=== PATIENT | female | born 1945 | race Caucasian/White ===

== ENCOUNTER → 2017-12-12 | Outpatient (CLI) | payer OTHER ==
[~2017-12-12] MED LIST: ALBU1AER9 INH; ATOR-24 PO; BUPR75TA20 PO; CHOL100010 PO; CLB/200 PO; FLUT0.0529 NAE; FLVHFA44 INH; LOSA50TA6 PO; METO50TA8 PO; PRT/20 PO; RANI150T85 PO
--- NOTE | 2017-12-12 16:37 | DIAGNOSTIC IMAGING REPORT ---
CT SCAN OF THE ORBITS WITHOUT IV CONTRAST CLINICAL HISTORY: Left eye contusion. COMPARISON STUDY: No priors. TECHNIQUE: High-resolution CT scan of the orbits is performed. Images are reviewed in the axial, sagittal, and coronal planes. IV contrast was not administered for this examination as per the referring clinician. A dose lowering technique was utilized adhering to the principles of ALARA. CT DOSE: 324.82 mGycm FINDINGS: The skeletal structures are osteopenic. The bony orbits are intact. Orbital contents are normal in appearance noting bilateral ocular lens implants. There is no evidence of intra- or extraconal mass. The extraocular musculature is normal and symmetric. There is left periorbital and premalar soft tissue contusion. There is no evidence of fracture. The zygomatic arches, pterygoid plates, and nasal bones are preserved. There are no layering blood products within the paranasal sinuses. Mild mucosal thickening is seen within the maxillary antra. Trace fluid is noted on the right. The remaining paranasal sinuses are clear. There is a small left mastoid effusion. The right mastoid air cells are well pneumatized. The imaged calvarium appears intact. The brain parenchyma is normal as visualized noting mild age-related involutional change. IMPRESSION: 1. The bony orbits are intact and orbital contents are normal in appearance. 2. There is left periorbital and premalar soft tissue contusion. 3. No fracture is identified. Dictated: 12/12/2017 4:17 PM Transcribed: 12/12/2017 4:37 PM [email or web address] Electronically signed by: Jus De La O M.D. 12/12/2017 4:42 PM Dictated Date/Time: 12/12/2017 4:17 PM
== END | disposition home or self-care (01) ==
LOC: C.CTS 15:16
PROVIDERS: ATTEND Optometrist
DX: S00.12XA Contusion of left eyelid and periocular area, initial encounter (principal); X58.XXXA Exposure to other specified factors, initial encounter

== ENCOUNTER 2021-07-07 10:47 | Observation (INO) ==
[2021-07-07] MEDS ORDERED: SODIUM CHLORIDE 0.9% 1000ML 1,000 ML IV STA (11:12)
[2021-07-07] MEDS ORDERED: ONDANSETRON INJ 2 MG/ML 2 ML VIAL IV STA (11:12)
[2021-07-07] MEDS ORDERED: MoRPHine SULFATE 4 MG/ML 1 ML CARP\\VIAL IV PRN (11:12)
--- NOTE | 2021-07-07 11:20 | Emergency Department Note ---
Impression & Plan Hydronephrosis with renal and ureteral calculous obstruction, Flank Pain, Left ureteral calculus ED Provider Note NAME: ERASTO HOLLINS AGE: 76 SEX: F : 1945 ARRIVES VIA: Walk-In INFORMANT: Patient, ED PROVIDER(S): Stan Chávez DO CHIEF COMPLAINT: Abdominal pain HPI: The patient is a 76-year-old female who presented to the emergency department for an evaluation of left lower quadrant abdominal pain. The patient states she had a gradually worsening onset of left-sided abdominal pain this morning. The pain does appear to go into her flank but mostly is in her left lower quadrant. She states is moderate to severe. She is noticed nausea as well as vomiting. She also noticed dark urine. She has no history of kidney stones in the past. She states the pain worsens with ambulation. She has been hunched over because of the pain. She denies having any fever. She denies having any recent trauma. The patient was seen by her primary care physician recently for bronchitis and was on an antibiotic. She had some diarrhea after the antibiotic but was told it was just from the antibiotic. She has not noticed significant diarrhea over the last 24 hours. She denies having any chest pain or difficulty breathing. She has no lower extremity swelling or rash. ROS: See above HPI for pertinent positives & negatives. A total of 10 systems reviewed and were otherwise negative. PAST MEDICAL HISTORY: See Below PAST SURGICAL HISTORY: See Below FAMILY HISTORY: See Below SOCIAL HISTORY: See Below HOME MEDICATIONS: See Below ALLERGIES: See Below VITALS: See Below PHYSICAL EXAMINATION: GENERAL: The patient is awake and alert. The patient is very anxious appearing and appears to be in significant pain. EYES: The conjunctivae are clear. The pupils are round and reactive. EARS, NOSE, MOUTH AND THROAT: The nose is without any evidence of any deformity. NECK: The neck is nontender and supple. RESPIRATORY: Normal respiratory effort is noted there is no evidence of wheezing rhonchi or rales CARDIOVASCULAR: Regular rate and rhythm noted there no murmurs rubs or gallops normal S1 normal S2. GASTROINTESTINAL: Abdomen is soft and mildly distended. There is significant left lower quadrant tenderness to palpation. There is no guarding. MUSCULOSKELETAL/EXTREMITIES: There is no evidence of gross deformity full range of motion is noted in the hips and shoulders. SKIN: There is no obvious evidence of any rash. There are no petechiae, pallor or cyanosis noted. NEUROLOGIC: Patient is awake alert and oriented x3. MEDICAL DECISION MAKING: The patient is a 76-year-old female who presented to the emergency department for an evaluation of flank pain. The patient had very severe acute left-sided flank pain. She was treated with IV pain medication and IV antiemetics. She was also started on Flomax and given Toradol in the emergency department. She was reevaluated multiple times. She did have some relief of her flank pain but her pain started to return. I discussed patient's laboratory and radiographic studies with her. Given the size and location of the kidney stone it is possible the patient may pass a stone without surgical intervention. Given her pain level as well as the size of the stone I will discuss this case with the on-call [facility] hospitalist group. Triage Nursing notes reviewed. Prior medical records reviewed Vital Signs: reviewed and remarkable for elevated blood pressure. Differential diagnosis: Renal colic, UTI, appendicitis, diverticulitis, mesenteric ischemia, aortic pathology, infections, inflammatory bowel disease, PUD, biliary pathology, as well as other pathologies. ER treatment provided: See below Diagnostics interpreted by me: ECG: none Cardiac Monitoring: An order was placed for continuous cardiac monitoring. The monitor shows a rate of 60 bpm with sinus rhythm. Laboratory studies: As stated above and show below. Imaging studies: See below Consultation(s): I discussed this case with Toma who is on-call for the [facility] hospitalist group. They will evaluate the patient in the emergency department for further management and disposition. Past Med/Surg History Medical History COPD (chronic obstructive pulmonary disease) Hypertension Social History Smoking Status: Never smoker Preferred Language: Greek Feels Safe at Home: Yes Allergies Allergies Allergy/AdvReac Type Severity Reaction Status Date / Time No Known Allergies Allergy Unknown Verified 03/10/15 08:55 Home Meds Home Medications Medication Instructions Recorded Confirmed albuterol sulfate 90 mcg/actuation 2 puff INHALATION DAILY PRN 07/07/21 07/07/21 aerosol inhaler atorvastatin 10 mg tablet 10 mg PO QAM 07/07/21 07/07/21 cholecalciferol (vitamin D3) 25 0 mcg PO QAM 07/07/21 07/07/21 mcg (1,000 unit) capsule (Vitamin D3) escitalopram oxalate 10 mg tablet 10 mg PO HS 07/07/21 07/07/21 fluticasone propionate 110 2 puff INHALATION BID 07/07/21 07/07/21 mcg/actuation HFA aerosol inhaler (Flovent HFA) losartan 100 mg tablet 100 mg PO QAM 07/07/21 07/07/21 metoprolol succinate 25 mg 25 mg PO QAM 07/07/21 07/07/21 tablet,extended release 24 hr montelukast 10 mg tablet 10 mg PO HS 07/07/21 07/07/21 multivitamin 1 tab PO QAM 07/07/21 07/07/21 pantoprazole 20 mg tablet,delayed 20 mg PO DAILYBB 07/07/21 07/07/21 release Results & Data (ED) Vital Signs Vital Signs - 24 hr 07/07/21 10:55 07/07/21 11:27 07/07/21 13:00 Temperature 36.4 C L Temperature Source Oral Pulse Rate 83 Pulse Rate [Apical] 60 60 Pulse Rhythm [Apical] Regular Irregular Pulse Strength [Apical] Normal Normal Respiratory Rate 16 20 16 Respiratory Effort / Characteristics Non-Labored Spontaneous Non-Labored Spontaneous Respiratory Depth Normal Normal Respiratory Pattern Regular Blood Pressure 177/117 H Blood Pressure [Right Arm] 186/79 H 160/75 H Blood Pressure Mean 137 Blood Pressure Mean [Right Arm] 114 103 Blood Pressure Position [Right Arm] Lying Pulse Oximetry 98 100 99 Oxygen Delivery Method Room Air Room Air Nasal Cannula Oxygen Flow Rate 2 Sepsis Recent Fever Within 48 Hours No Sepsis New/Unexplained Change in Mental Status No Sepsis Action Taken by Nursing No Action Required Home Medications Current Medication List: was personally reviewed by me Laboratory Data Attestation: I reviewed the patient's lab results. Result diagrams: 07/07/21 11:15 07/07/21 11:15 Lab Results 07/07/21 07/07/21 07/07/21 Range/Units 11:15 11:15 11:45 WBC 10.53 (4.8-10.8) K/uL RBC 4.92 (4.2-5.4) M/uL Hgb 14.1 (12.0-16.0) g/dL Hct 42.1 (37-47) % MCV 85.6 (80-100) fL MCH 28.7 (25-34) pg MCHC 33.5 (32-36) g/dL RDW Std Deviation 40.5 (36.4-46.3) fL RDW Coeff of Regine 12.8 (11.5-14.5) % Plt Count 203 (130-400) K/uL MPV 11.4 H (7.4-10.4) fL Immature Gran % (Auto) 0.1 % Neut % (Auto) 85.1 % Lymph % (Auto) 10.4 % [place] % (Auto) 3.5 % Eos % (Auto) 0.7 % Baso % (Auto) 0.2 % Neut # (Auto) 8.96 H (1.4-6.5) K/uL Lymph # (Auto) 1.10 L (1.2-3.4) K/uL [place] # (Auto) 0.37 (0.11-0.59) K/uL Eos # (Auto) 0.07 (0-0.5) K/uL Baso # (Auto) 0.02 (0-0.2) K/uL Immature Gran # (Auto) 0.01 (0.00-0.02) K/uL Sodium 143 (136-145) mmol/L Potassium 4.1 (3.5-5.1) mmol/L Chloride 112 H (98-107) mmol/L Carbon Dioxide 25 (21-32) mmol/L Anion Gap 7.0 (3-11) BUN 19 H (7-18) mg/dl Creatinine 0.92 (0.6-1.2) mg/dl Est Cr Clr Drug Dosing 49.8 ml/min Est GFR ( Amer) 70.6 ml/min Est GFR (Non-Af Amer) 60.9 ml/min BUN/Creatinine Ratio 20.4 H (10-20) Glucose 149 H (70-99) mg/dl Calcium 9.7 (8.5-10.1) mg/dl Total Bilirubin 0.6 (0.2-1) mg/dl AST 11 L (15-37) U/L ALT 26 (12-78) U/L Alkaline Phosphatase 68 (45-117) U/L Total Protein 7.4 (6.4-8.2) gm/dl Albumin 3.8 (3.4-5.0) gm/dl Globulin 3.6 (2.5-4.0) gm/dl Albumin/Globulin Ratio 1.0 (0.9-2) Lipase 172 (73-393) U/L Urine Color Yellow Urine Appearance Clear (Clear) Urine pH 5.5 (4.5-7.5) Ur Specific [place] 1.025 (1.000-1.030) Urine Protein Negative (Negative) Urine Glucose (UA) Negative (Negative) Urine Ketones Negative (Negative) Urine Blood 2+ H (Negative) Urine Nitrite Negative (Negative) Urine Bilirubin Negative (Negative) Urine Urobilinogen Negative (Negative) Ur Leukocyte Esterase Trace H (Negative) Urine RBC 10-30 H (0-4) /hpf Urine WBC 0-5 (0-5) /hpf Ur Epithelial Cells 10-20 H (0-5) /lpf Calcium Oxalate Crystal Present A (None Prsent) Urine Bacteria 1+ H (Negative) Administered Medications Morphine Sulfate (Morphine Sulfate 4 Mg/Ml 1 Ml Carp\Vial) 4 mg IV Q15M PRN PRN Reason: Pain Stop: 07/21/21 11:11 Last Admin: 07/07/21 11:32 Dose: 4 mg Documented by: [id number] Discontinued Medications Sodium Chloride (Nss 1000ml) 1,000 mls @ 999 mls/hr IV .Q1H1M STA Stop: 07/07/21 12:12 Last Admin: 07/07/21 11:36 Dose: 999 mls/hr Documented by: [id number] Ondansetron HCl (Ondansetron Inj 2 Mg/Ml 2 Ml Vial) 4 mg IV NOW STA Stop: 07/07/21 11:13 Last Admin: 07/07/21 11:30 Dose: 4 mg Documented by: [id number] Imaging Data Radiologist's Impression: Abdomen/Pelvis CT 07/07/21 11:[address] WITHOUT CONTRAST CT DOSE: 924.99 mGycm HISTORY: left flank pain TECHNIQUE: Multiaxial CT images of the abdomen and pelvis were performed without contrast. A dose lowering technique was utilized adhering to the principles of ALARA. COMPARISON STUDY: None. FINDINGS: There is a 3 mm subpleural nodular density within the right middle lobe on image 20. This may represent an area of scarring. Punctate calcified granuloma within the left lower lobe. No fractures within the visualized osseous structures. There is a small hiatus hernia. There are small fat-containing bilateral inguinal hernias. There is a 6 mm obstructing stone within the distal left ureter on image 351. This results in mild left hydroureteronephrosis. There is mild left perinephric edema. There is a punctate stone within the lower pole of the left kidney. No right renal stones. The bladder is unremarkable. Prior hysterectomy. No pelvic free fluid. The unenhanced liver, gallbladder, spleen, a drenal glands, and pancreas are unremarkable. No retroperitoneal lymphadenopathy. Mild calcified plaque within the normal caliber abdominal aorta. Suboptimal evaluation for bowel pathology due to the lack of intravenous and oral contrast. However, there is no definite bowel wall thickening or obstru ction. Colonic diverticulosis. No evidence for acute diverticulitis. Normal appendix. IMPRESSION: 1. A 6 mm obstructing stone within the distal left ureter resulting in mild left hydroureteronephrosis. 2. There is an additional punctate nonobstructing stone within the lower pole the left kidney. 3. Colonic diverticulosis. No evidence for acute diverticulitis. 4. Normal appendix. 5. Hysterectomy. ACT 112: Negative or not required by law. Electronically signed by: See Patrick M.D. 07/07/2021 1:10 PM Discharge Plan Visit Data Chief Complaint: Flank Pain Stated Complaint: EXTREME PAIN LEFT SIDE/VOMITING ED Provider: Stan Chávez Discharge Problem: Hydronephrosis with renal and ureteral calculous obstruction, Flank Pain, Left ureteral calculus Patient Disposition: Being Evaluated by Hospitalist Forms Stand Alone Forms: [facility] [email or web address] [email or web address] Prescriptions Prescriptions: No Action multivitamin Tablet 1 tab PO QAM RF: 0 atorvastatin 10 mg tablet 10 mg PO QAM RF: 0 pantoprazole 20 mg tablet,delayed release (DR/EC) 20 mg PO DAILYBB RF: 0 montelukast 10 mg tablet 10 mg PO HS RF: 0 metoprolol succinate 25 mg tablet extended release 24 hr 25 mg PO QAM RF: 0 albuterol sulfate 90 mcg/actuation HFA aerosol inhaler 2 puff INHALATION DAILY PRN (Reason: Shortness Of Breath) RF: 0 losartan 100 mg tablet 100 mg PO QAM RF: 0 Flovent HFA 110 mcg/actuation HFA aerosol inhaler 2 puff inhalation BID RF: 0 cholecalciferol (vitamin D3) [Vitamin D3] 25 mcg (1,000 unit) Capsule 0 mcg PO QAM RF: 0 escitalopram oxalate 10 mg tablet 10 mg PO HS RF: 0 Referrals Referrals: Trey Casarez [Primary Care Provider] -
[2021-07-07 11:25] LABS: Basophils # (auto) 0.02 K/uL (0-0.2); Basophils % (auto) 0.2 %; Eosinophils # (auto) 0.07 K/uL (0-0.5); Eosinophils % (auto) 0.7 %; Hematocrit (blood only) 42.1 % (37-47); Hemoglobin 14.1 g/dL (12.0-16.0); Immature Granulocytes # (auto) 0.01 K/uL (0.00-0.02); Immature Granulocytes % (auto) 0.1 %; Lymphocytes % (auto) 10.4 %; Mean Corpuscular Hemoglobin 28.7 pg (25-34); Mean Corpuscular Hgb Conc 33.5 g/dL (32-36); Mean Corpuscular Volume 85.6 fL (80-100); Mean Platelet Volume 11.4 fL (7.4-10.4); Monocytes # (auto) 0.37 K/uL (0.11-0.59); Monocytes % (auto) 3.5 %; Neutrophils # (auto) 8.96 K/uL (1.4-6.5); Neutrophils % (auto) 85.1 %; Platelet Count 203 K/uL (130-400); RDW Coefficient of Variation 12.8 % (11.5-14.5); RDW Standard Deviation 40.5 fL (36.4-46.3); Red Blood Count 4.92 M/uL (4.2-5.4); White Blood Count 10.53 K/uL (4.8-10.8)
[2021-07-07 11:42] LABS: Albumin Level 3.8 gm/dl (3.4-5.0); BUN Creatinine Ratio 20.4 (10-20); Calcium 9.7 mg/dl (8.5-10.1); Creatinine Clr Calc Pharmacy 49.8 ml/min; Est GFR (African American) 70.6 ml/min; Est GFR (Non-African American) 60.9 ml/min; Potassium 4.1 mmol/L (3.5-5.1)
[2021-07-07 11:45] LABS: Bilirubin,Total 0.6 mg/dl (0.2-1); Globulin 3.6 gm/dl (2.5-4.0); Total Protein 7.4 gm/dl (6.4-8.2)
[2021-07-07 11:53] LABS: Appearance Urine Clear (Clear); Bilirubin Urine Negative (Negative); Blood Urine 2+ (Negative); Color Urine Yellow; Glucose Urine UA Negative (Negative); Ketones Urine Negative (Negative); Leukocyte Esterase Urine Trace (Negative); Nitrite Urine Negative (Negative); Protein Urine Negative (Negative); Specific Gravity Urine 1.025 (1.000-1.030); Urobilinogen Urine Negative (Negative); pH Urine 5.5 (4.5-7.5)
[2021-07-07 12:02] LABS: Bacteria Urine 1+ (Negative); Calcium Oxalate Crystals Urine Present (None Prsent); WBC Urine 0-5 /hpf (0-5)
--- NOTE | 2021-07-07 13:11 | CT Scan Report ---
ABDOMEN AND PELVIS CT WITHOUT CONTRAST CT DOSE: 924.99 mGycm HISTORY: left flank pain TECHNIQUE: Multiaxial CT images of the abdomen and pelvis were performed without contrast. A dose lo wering technique was utilized adhering to the principles of ALARA. COMPARISON STUDY: None. FINDINGS: There is a 3 mm subpleural nodular density within the right middle lobe on image 20. This m ay represent an area of scarring. Punctate calcified granuloma within the left lower lobe. No fractur es within the visualized osseous structures. There is a small hiatus hernia. There are small fat-cont aining bilateral inguinal hernias. There is a 6 mm obstructing stone within the distal left ureter on image 351. This results in mild left hydroureteronephrosis. There is mild left perinephric edema. Th ere is a punctate stone within the lower pole of the left kidney. No right renal stones. The bladder is unremarkable. Prior hysterectomy. No pelvic free fluid. The unenhanced liver, gallbladder, spleen, adrenal glands, and pancreas are unremarkable. No retroperitoneal lymphadenopathy. Mild calcified pl aque within the normal caliber abdominal aorta. Suboptimal evaluation for bowel pathology due to the lack of intravenous and oral contrast. However, there is no definite bowel wall thickening or obstruc tion. Colonic diverticulosis. No evidence for acute diverticulitis. Normal appendix. IMPRESSION: 1. A 6 mm obstructing stone within the distal left ureter resulting in mild left hydroureteronephrosi s. 2. There is an additional punctate nonobstructing stone within the lower pole the left kidney. 3. Colonic diverticulosis. No evidence for acute diverticulitis. 4. Normal appendix. 5. Hysterectomy. ACT 112: Negative or not required by law. Electronically signed by: See Patrick M.D. 07/07/2021 1:10 PM
[2021-07-07] MEDS ORDERED: TAMSULOSIN HCL 0.4 MG CAP PO ONE (13:27)
[2021-07-07] MEDS ORDERED: KETOROLAC TROMETHAMINE 15 MG/ML VIAL IV ONE (13:27)
--- NOTE | 2021-07-07 15:35 | History & Physical Report ---
Date of Service July 07, 2021 Assessment & Plan (1) Hydronephrosis with renal and ureteral calculous obstruction: Plan: Spoke with urology who will see patient in the morning. Will make NPO after midnight in case of a potential need for intervention - Tramadol/morphine for pain - Zofran for nausea - Clear liquids tonight - Strain urine - IVF with NSS at 100 ml/hr - Follow labs - Empiric antibiotic coverage with ceftriaxone 2 g daily (2) Asthma: Plan: - Continue home meds (3) GERD (gastroesophageal reflux disease): Plan: - Continue PPI therapy (4) Chronic ITP (idiopathic thrombocytopenia): Plan: Not an active issue, not currently following with hematology - platelets today >200K (5) Hypertension: Plan: - Continue home BP meds Plan: Pt seen and reviewed with collaborating physician, Dr. Davis. Plan of care discussed and as outlined above. Daughter updated at the bedside - all questions answer. DVT Prophylaxis: SCDs Code Status: Full Code Gato Guerrero PA-C History of Present Illness Chief Complaint: LLQ/left flank pain Primary Care Provider: Trey Casarez This is a 76 y/o female with a PMH of HTN, GERD, chronic ITP, asthma and allergic rhinitis who presented to the ED today with LLQ/left flank pain that started this morning. Yesterday, she states that she was in her usual state of health and felt great. Today, she woke up feeling fine but around 7:30 am had the abrupt onset of sharp LLQ pain that radiated to her left flank. She developed associated nausea and dry heaves with at least two episodes of green emesis. She has hot and cold flashes but she denies associated fever, MALDONADO, CP, palpitations, or dizziness. She did have some transient SOB for which she used her prn asthma inhalers this morning but she thinks that this was more related to anxiety about the pain than to her asthma. She has no known prior hx of nephrolithiais. She denies dysuria, hematuria, but does note that her urine has been darker than usual for the past few days. She has a history of chronic ITP and was due for labs next month. She notes recent improvement in her platelet counts and does not routinely follow with hematology although she did see Dr. Parsons for this previously. She takes occasional ibuprofen or Tylenol but no aspirin or blood thinners. Allergies Allergy/AdvReac Type Severity Reaction Status Date / Time No Known Allergies Allergy Unknown Verified 03/10/15 08:55 Home Medications Medication Instructions Recorded Confirmed Type albuterol sulfate 90 mcg/actuation 2 puff INHALATION Q4H PRN 07/07/21 07/07/21 History aerosol inhaler atorvastatin 10 mg tablet 10 mg PO QAM 07/07/21 07/07/21 History cholecalciferol (vitamin D3) 25 25 mcg PO QAM 07/07/21 07/07/21 History mcg (1,000 unit) capsule (Vitamin D3) escitalopram oxalate 10 mg tablet 10 mg PO HS 07/07/21 07/07/21 History fluticasone propionate 110 2 puff INHALATION BID PRN 07/07/21 07/07/21 History mcg/actuation HFA aerosol inhaler (Flovent HFA) fluticasone propionate 50 1 spray INTRANASAL DAILY PRN 07/07/21 07/07/21 History mcg/actuation nasal spray,suspension losartan 100 mg tablet 100 mg PO QAM 07/07/21 07/07/21 History metoprolol succinate 25 mg 25 mg PO HS 07/07/21 07/07/21 History tablet,extended release 24 hr montelukast 10 mg tablet 10 mg PO HS 07/07/21 07/07/21 History multivitamin 1 tab PO QAM 07/07/21 07/07/21 History pantoprazole 20 mg tablet,delayed 20 mg PO DAILYBB 07/07/21 07/07/21 History release umeclidinium 62.5 mcg-vilanterol 1 inh INHALATION DAILY 07/07/21 07/07/21 History 25 mcg/actuation powdr for inhalation (Anoro Ellipta) Past Med/Surg History Medical History Allergic rhinitis Asthma Chronic ITP (idiopathic thrombocytopenia) GERD (gastroesophageal reflux disease) History of duodenal ulcer Hypertension Surgical History History of bilateral cataract extraction History of hysterectomy Family History Mother Hypertension Father Cancer Daughter Thyroid disease Social History Smoking Status: Never smoker Second Hand Exposure: Yes (sister); Hx Alcohol Use: Yes Hx Substance Use: No Preferred Language: Macedonian Communication Ability: Effective [employer] Professional Required: No Beliefs That Will Affect Care: None Current Living Situation: Alone Other Information That Helps Us Care for You: No Feels Safe at Home: Yes Safety Concerns: Feels Safe At This Time Assistive Devices: Denture - Upper and Hearing Aid - Bilateral Review of Systems Review of Systems: All systems reviewed & are unremarkable except as noted in HPI & below Constitutional: + chills, + sweats and + anorexia; no fever Eyes: no diplopia and no worsening vision Ear, Nose, Mouth, Throat: no nasal congestion, no nasal discharge and no sore throat Respiratory: as per Subjective / HPI; no cough and no wheezing Cardiovascular: no chest pain, no palpitations, no syncope and no edema Gastrointestinal: as per Subjective / HPI; no diarrhea/loose stools and no blood in stools Genitourinary: no dysuria, no urinary frequency and no hematuria Musculoskeletal: + back pain; no neck pain and no joint pain Integumentary: no rash and no yellowing of the skin Neurologic: no seizure-like activity, no dizziness, no headache(s) and no confusion Psychiatric: as per Subjective / HPI Physical Exam Constitutional: well developed and well nourished; no acute distress Eyes: + anicteric sclerae Neck: trachea midline Respiratory: no respiratory distress and no labored breathing Auscultation: lungs clear to auscultation bilaterally; no rales, no rhonchi and no wheezes Cardiovascular: Rate/Rhythm: regular rate and regular rhythm Vessels: dorsalis pedis pulses present and radial pulses present Extremities: no calf tenderness and no edema Gastrointestinal (Abdomen): Inspection/Auscultation: normal bowel sounds; abdomen not distended Percussion/Palpation: + abdomen tender (mild LLQ and left flank) and abdomen soft Musculoskeletal: Head/Neck/Chest: normocephalic, head atraumatic and neck supple Skin: normal turgor; no jaundice Neurologic: moves all extremities; no focal motor deficits Psychiatric: A+Ox3, euthymic affect Results & Data Results & Data ([facility]) Vital Signs (Past 12 Hours) Vital Signs Temp Pulse Pulse Resp BP BP Pulse Ox 07/07/21 14:45 74 19 172/104 H 99 07/07/21 14:30 59 L 17 157/88 H 99 07/07/21 14:15 56 L 15 100 07/07/21 14:00 57 L 15 165/82 H 100 07/07/21 13:45 60 14 100 07/07/21 13:30 57 L 9 L 163/84 H 100 07/07/21 13:15 57 L 16 99 07/07/21 13:00 62 60 19 160/75 H 100 07/07/21 12:45 54 L 12 160/91 H 99 07/07/21 12:40 74 18 100 07/07/21 12:15 53 L 16 99 07/07/21 12:00 59 L 18 190/89 H 99 07/07/21 11:49 55 L 19 99 07/07/21 11:27 60 20 186/79 H 100 07/07/21 10:55 36.4 C L 83 16 177/117 H 98 Laboratory Results Laboratory Results - last 24 hr 07/07/21 07/07/21 07/07/21 11:15 11:15 11:45 WBC 10.53 RBC 4.92 Hgb 14.1 Hct 42.1 MCV 85.6 MCH 28.7 MCHC 33.5 RDW Std Deviation 40.5 RDW Coeff of Regine 12.8 Plt Count 203 MPV 11.4 H Immature Gran % (Auto) 0.1 Neut % (Auto) 85.1 Lymph % (Auto) 10.4 [place] % (Auto) 3.5 Eos % (Auto) 0.7 Baso % (Auto) 0.2 Neut # (Auto) 8.96 H Lymph # (Auto) 1.10 L [place] # (Auto) 0.37 Eos # (Auto) 0.07 Baso # (Auto) 0.02 Immature Gran # (Auto) 0.01 Sodium 143 Potassium 4.1 Chloride 112 H Carbon Dioxide 25 Anion Gap 7.0 BUN 19 H Creatinine 0.92 Est Cr Clr Drug Dosing 49.8 Est GFR ( Amer) 70.6 Est GFR (Non-Af Amer) 60.9 BUN/Creatinine Ratio 20.4 H Glucose 149 H Calcium 9.7 Total Bilirubin 0.6 AST 11 L ALT 26 Alkaline Phosphatase 68 Total Protein 7.4 Albumin 3.8 Globulin 3.6 Albumin/Globulin Ratio 1.0 Lipase 172 Urine Color Yellow Urine Appearance Clear Urine pH 5.5 Ur Specific [place] 1.025 Urine Protein Negative Urine Glucose (UA) Negative Urine Ketones Negative Urine Blood 2+ H Urine Nitrite Negative Urine Bilirubin Negative Urine Urobilinogen Negative Ur Leukocyte Esterase Trace H Urine RBC 10-30 H Urine WBC 0-5 Ur Epithelial Cells 10-20 H Calcium Oxalate Crystal Present A Urine Bacteria 1+ H SARS-CoV-2, RNA, NAAT 07/07/21 14:50 WBC RBC Hgb Hct MCV MCH MCHC RDW Std Deviation RDW Coeff of Regine Plt Count MPV Immature Gran % (Auto) Neut % (Auto) Lymph % (Auto) [place] % (Auto) Eos % (Auto) Baso % (Auto) Neut # (Auto) Lymph # (Auto) [place] # (Auto) Eos # (Auto) Baso # (Auto) Immature Gran # (Auto) Sodium Potassium Chloride Carbon Dioxide Anion Gap BUN Creatinine Est Cr Clr Drug Dosing Est GFR ( Amer) Est GFR (Non-Af Amer) BUN/Creatinine Ratio Glucose Calcium Total Bilirubin AST ALT Alkaline Phosphatase Total Protein Albumin Globulin Albumin/Globulin Ratio Lipase Urine Color Urine Appearance Urine pH Ur Specific [place] Urine Protein Urine Glucose (UA) Urine Ketones Urine Blood Urine Nitrite Urine Bilirubin Urine Urobilinogen Ur Leukocyte Esterase Urine RBC Urine WBC Ur Epithelial Cells Calcium Oxalate Crystal Urine Bacteria SARS-CoV-2, RNA, NAAT NEGATIVE Diagnostic Findings CT Abd/Pel - IMPRESSION: 1. A 6 mm obstructing stone within the distal left ureter resulting in mild left hydroureteronephrosis. 2. There is an additional punctate nonobstructing stone within the lower pole the left kidney. 3. Colonic diverticulosis. No evidence for acute diverticulitis. 4. Normal appendix. 5. Hysterectomy. Medications Administered Morphine Sulfate (Morphine Sulfate 4 Mg/Ml 1 Ml Carp\Vial) 4 mg IV Q15M PRN PRN Reason: Pain Stop: 07/21/21 11:11 Last Admin: 07/07/21 11:32 Dose: 4 mg Documented by: [id number] Discontinued Medications Sodium Chloride (Nss 1000ml) 1,000 mls @ 999 mls/hr IV .Q1H1M STA Stop: 07/07/21 12:12 Last Infusion: 07/07/21 12:37 Dose: 0 mls/hr Documented by: [id number] Admin: 07/07/21 11:36 Dose: 999 mls/hr Documented by: [id number] Ketorolac Tromethamine (Ketorolac Tromethamine 15 Mg/Ml Vial) 10 mg IV NOW ONE Stop: 07/07/21 13:28 Last Admin: 07/07/21 14:43 Dose: 10 mg Documented by: [id number] Ondansetron HCl (Ondansetron Inj 2 Mg/Ml 2 Ml Vial) 4 mg IV NOW STA Stop: 07/07/21 11:13 Last Admin: 07/07/21 11:30 Dose: 4 mg Documented by: [id number] Tamsulosin HCl (Tamsulosin Hcl 0.4 Mg Cap) 0.4 mg PO NOW ONE Stop: 07/07/21 13:28 Last Admin: 07/07/21 14:48 Dose: 0.4 mg Documented by: [id number] Code Status & VTE Plan VTE Prophylaxis Plan VTE Prophylaxis will be ordered: Yes Supervising Physician Co-Signing Physician Notes Pt is a 76 y/o F with hx of HTN, GERD, hx of ITP admitted for L uretral calculi with L hydronephrosis. Exam: -NAD -Cardiac: Normal S1/S2, no murmur -Lungs: CTA, no wheezing -Abd: no CVA TTP, ND, NT, soft -MSK: no edema A/P: L uretral calculi with L Hydronephrosis: CT abd/Pelvis: 1. A 6 mm obstructing stone within the distal left ureter resulting in mild left hydroureteronephrosis. 2. There is an additional punctate nonobstructing stone within the lower pole the left kidney. -normal Cr -pt is s/p tamsulosim, toradol and morphine -will continue the pt on tamsulosin, prn tramadol and morphine -will start the pt on ceftriaxone -urology Consult Agree with A/P by Julissa Guerrero PA-C
[2021-07-07] MEDS: SODIUM CHLORIDE 0.9% 1000ML 1,000 ML IV SCH (16:19)
[2021-07-07] MEDS ORDERED: cefTRIAXone SODIUM 2000MG/70ML D5W IV ONE (18:26)
[2021-07-07] MEDS: cefTRIAXone SODIUM 2,000 MG in DEXTROSE 5% 50 ML IV SCH (18:48)
[2021-07-07] MEDS ORDERED: ONDANSETRON INJ 2 MG/ML 2 ML VIAL IV PRN (19:59)
[2021-07-07] MEDS ORDERED: MoRPHine SULFATE 2 MG/ML CARP IV PRN (19:59)
[2021-07-07] MEDS ORDERED: ALBUTEROL HFA 8 GM INHALER INH PRN (19:59)
--- NOTE | 2021-07-07 20:35 | Urology Consultation ---
Date of Consultation July 07, 2021 Assessment & Plan (1) Hydronephrosis with renal and ureteral calculous obstruction: Patient has been admitted by the hospital service we recommend proceeding as follows: Provide analgesics Provide antiemetics Hydration measures with IV fluid Patient has been placed empirically on Rocephin. Urine culture has been obtained and is pending. Further antibiotics can be dictated and tailored based on pending culture results Consider placing patient on Flomax for expulsive therapy (she has received a dose of this in the emergency department) We will make the patient n.p.o. after midnight in the event that cystoscopic intervention will be required tomorrow morning. At the present time the patient is afebrile without leukocytosis or evidence of acute kidney injury. She is also noted be normotensive and not tachycardic. Therefore acute urologic intervention is not required this evening. Additional recommendations be forthcoming based on her clinical course as unfolds History of Present Illness Reason for Consultation: Nephrolithiasis Attending Physician: Maribel Davis MD History of Present Illness This is a 76-year-old female who presented to [facility] emergency department earlier today secondary to left-sided flank pain. Patient says yesterday she was in her usual state of health feeling fine and this left- sided flank pain began approximately 7:00 AM this morning. She says that the pain did radiate to the front of her abdomen into her left groin. She has had some associated nausea without vomiting. She has not had any fevers but did report occasional shakes. Patient says she is never experienced symptoms like this before and she does not note any palliative or provocative factors other than pain medicines that were administered in the emergency department. Patient denies any prior history of kidney stones. With her current presentation she denies any dysuria or urinary frequency. She also denies any hematuria. In the emergency department the patient had labs and imaging which I independently reviewed. Patient did have a CT scan of her abdomen and pelvis that showed a 6 mm obstructing kidney stone in the distal left ureter resulting in left hydronephrosis. Labs include a CBC were white blood cell count, hemoglobin, hematocrit, and platelet count are all within normal range. Chemistry profile showed sodium, potassium, and creatinine were all within normal range. Urinalysis was performed that showed 2+ blood, negative nitrites, trace leukocyte esterase, and 1+ bacteria. There were only 0-5 white blood cells noted per high-power field. A Covid test was performed and was noted to be. Negative I question patient on her daily lifestyle and she is very active. She says she golfs several times per week. She says when she goes golfing she does not experience any chest pain and does not exhibit any worsening shortness of breath. She says she does have some underlying shortness of breath due to asthma. At the time of interview the patient was resting comfortably in bed she was in n o distress. Allergies Allergy/AdvReac Type Severity Reaction Status Date / Time No Known Allergies Allergy Unknown Verified 03/10/15 08:55 Home Medications Medication Instructions Recorded Confirmed Type albuterol sulfate 90 mcg/actuation 2 puff INHALATION Q4H PRN 07/07/21 07/07/21 History aerosol inhaler atorvastatin 10 mg tablet 10 mg PO QAM 07/07/21 07/07/21 History cholecalciferol (vitamin D3) 25 25 mcg PO QAM 07/07/21 07/07/21 History mcg (1,000 unit) capsule (Vitamin D3) escitalopram oxalate 10 mg tablet 10 mg PO HS 07/07/21 07/07/21 History fluticasone propionate 110 2 puff INHALATION BID PRN 07/07/21 07/07/21 History mcg/actuation HFA aerosol inhaler (Flovent HFA) fluticasone propionate 50 1 spray INTRANASAL DAILY PRN 07/07/21 07/07/21 History mcg/actuation nasal spray,suspension losartan 100 mg tablet 100 mg PO QAM 07/07/21 07/07/21 History metoprolol succinate 25 mg 25 mg PO HS 07/07/21 07/07/21 History tablet,extended release 24 hr montelukast 10 mg tablet 10 mg PO HS 07/07/21 07/07/21 History multivitamin 1 tab PO QAM 07/07/21 07/07/21 History pantoprazole 20 mg tablet,delayed 20 mg PO DAILYBB 07/07/21 07/07/21 History release umeclidinium 62.5 mcg-vilanterol 1 inh INHALATION DAILY 07/07/21 07/07/21 History 25 mcg/actuation powdr for inhalation (Asiaro Andria) Patient History Medical History Allergic rhinitis Asthma Chronic ITP (idiopathic thrombocytopenia) GERD (gastroesophageal reflux disease) History of duodenal ulcer Hypertension Surgical History History of bilateral cataract extraction History of hysterectomy Family History Mother Hypertension Father Cancer Daughter Thyroid disease Social History Smoking Status: Never smoker Second Hand Exposure: Yes (sister); Hx Alcohol Use: Yes Hx Substance Use: No Preferred Language: Polish Communication Ability: Effective Oxidation Engineer Required: No Beliefs That Will Affect Care: None Current Living Situation: Alone Other Information That Helps Us Care for You: No Feels Safe at Home: Yes Safety Concerns: Feels Safe At This Time Assistive Devices: Denture - Upper and Hearing Aid - Bilateral Review of Systems Constitutional: no fever and no chills Eyes: no diplopia Ear, Nose, Mouth, Throat: no ear pain Respiratory: no cough and no dyspnea Cardiovascular: no chest pain Gastrointestinal: + abdominal pain and + nausea; no vomiting Genitourinary: + flank pain (Left-sided); no dysuria, no urinary frequency and no hematuria Musculoskeletal: + back pain (Left flank) Integumentary: no rash Neurologic: no localized weakness Physical Exam Constitutional: well developed and well nourished; no acute distress Eyes: no conjunctival abnormality ENMT: Ears: no hearing impairment Mouth: no oropharynx abnormality Neck: trachea midline Respiratory: normal respiratory effort; no respiratory distress and no labored breathing Cardiovascular: Rate/Rhythm: regular rate and regular rhythm Gastrointestinal (Abdomen): Abdomen is soft, nondistended, with normal bowel sounds. Patient did have minor tenderness with palpation on the left side of her abdomen. Musculoskeletal: No calf tenderness Skin: no rashes Neurologic: moves all extremities Psychiatric: A+Ox3, euthymic affect Results & Data ([facility]) Vital Signs (Past 12 Hours) Vital Signs Temp Pulse Pulse Resp BP BP Pulse Ox 07/07/21 20:00 37 C 78 18 139/79 96 07/07/21 19:00 73 18 153/71 H 94 07/07/21 17:00 70 22 132/62 98 07/07/21 16:00 75 18 98 07/07/21 15:45 75 15 98 07/07/21 15:30 69 16 99 07/07/21 15:15 61 19 99 07/07/21 15:00 68 14 114/93 99 07/07/21 14:45 74 19 172/104 H 99 07/07/21 14:30 59 L 17 157/88 H 99 07/07/21 14:15 56 L 15 100 07/07/21 14:00 57 L 15 165/82 H 100 07/07/21 13:45 60 14 100 07/07/21 13:30 57 L 9 L 163/84 H 100 07/07/21 13:15 57 L 16 99 07/07/21 13:00 62 60 19 160/75 H 100 07/07/21 12:45 54 L 12 160/91 H 99 07/07/21 12:40 74 18 100 07/07/21 12:15 53 L 16 99 07/07/21 12:00 59 L 18 190/89 H 99 07/07/21 11:49 55 L 19 99 07/07/21 11:27 60 20 186/79 H 100 07/07/21 10:55 36.4 C L 83 16 177/117 H 98 PG Care Time/CCT Total # of Minutes Spent Total Time Spent with Patient: Total time spent is greater than 50% in coordination of care (as documented) at patient's floor/unit and/or counseling patient: Coding Level of Care Code 24691 Inpt Consult Level 5 Diagnoses Hydronephrosis with renal and ureteral calculous obstruction N13.2
[2021-07-07] MEDS: traMADol HCL 50 MG TABLET PO PRN (20:49)
[2021-07-07] MEDS ORDERED: METOPROLOL SUCC 25MG EXT REL TAB PO SCH (21:00)
[2021-07-07] MEDS ORDERED: MONTELUKAST SODIUM 10 MG TABLET PO SCH (21:00)
[2021-07-07] MEDS ORDERED: ESCITALOPRAM OXALATE 10 MG TAB PO SCH (21:00)
[2021-07-08] MEDS: SODIUM CHLORIDE 0.9% 1000ML 1,000 ML IV SCH (01:29)
[2021-07-08] MEDS: traMADol HCL 50 MG TABLET PO PRN (05:47)
[2021-07-08] MEDS ORDERED: PANTOprazole 40 MG TAB PO SCH (06:30)
--- NOTE | 2021-07-08 08:23 | Urology Progress Note ---
Date of Service July 08, 2021 Assessment & Plan (1) Left ureteral calculus: (2) Flank Pain: (3) Hydronephrosis with renal and ureteral calculous obstruction: Plan: 76yo F admitted with intractable left flank pain secondary to a 6 mm obstructing distal left ureteral stone resulting in left hydronephrosis. - Patient with some improvement in pain, no stone passage noted overnight. - She is afebrile, VSS, non-toxic appearing. - Labs reviewed -Wbc and creatinine stable - Urine culture pending, continues on IV Ceftriaxone - Voiding spontaneously - Discussed options for acute stone management with stent placement while inpatient. Also discussed outpatient options for conservative measures with max expulsion medical therapy and close follow-up. Risks/benefits of each discussed. - Given her persistent pain, she prefers to proceed with cystoscopy and ureteral stent placement. - Keep NPO - Continue to strain all urine - Findings reviewed with Dr. Pope, on-call urologist. Given her intractable left flank pain in the context of an obstructing 6mm distal left ureteral stone, will proceed with OR for cystoscopy, left retrograde pyelogram and left stent placement, possible ureteroscopy, laser lithotripsy, stone treatment depending on findings. - Risks and benefits to be reviewed with patient by Dr. Pope. OR notified. Covid test negative. Preoperative CXR and EKG ordered. On IV Ceftriaxone. - Expected clinical course reviewed with patient, she is agreeable to plan, all questions were answered. - Continue supportive care, antibiotic therapy, tamsulosin, and pain management. - Will continue to follow Admission and Anticipated Discharge Date Admission Date: July 07, 2021 Supervising Physician Co-Signing Physician Notes Discussed patient with CHASIDY. Agree with plan. Will plan for stent this afternoon, possible ureteroscopy if stone is easily reachable. Subjective Pt examined at bedside this AM. Awake, resting in bed on arrival. No acute distress. Straining all urine, no stone passage noted overnight. Still with left flank pain, has improved with PO pain medication. No fevers or chills. Denies nausea or vomiting at present. Voiding without difficulty. Denies hematuria and dysuria. Some urgency. Has been NPO. Review of Systems Constitutional: as per Subjective / HPI Gastrointestinal: as per Subjective / HPI Genitourinary: as per Subjective / HPI Physical Exam Constitutional: well developed and well nourished; no acute distress and not ill appearing Respiratory: normal respiratory effort and able to speak in complete sentences; no labored breathing and no audible wheezes Gastrointestinal (Abdomen): Inspection/Auscultation: abdomen normal to inspection; abdomen not distended Musculoskeletal: Head/Neck/Chest: normocephalic Skin: No visible rashes or lesions to exposed skin areas Neurologic: moves all extremities and awake Psychiatric: Orientation: alert, oriented x 3 and cooperative Genitourinary: no CVA tenderness Results & Data ([facility]) Vital Signs (Past 12 Hours) Vital Signs Temp Pulse Pulse Resp BP Pulse Ox 07/08/21 07:35 36.9 C 64 14 103/63 95 07/07/21 23:23 37.1 C 74 18 136/79 97 PG Care Time/CCT Total # of Minutes Spent Total Time Spent with Patient: Total time spent is greater than 50% in coordination of care (as documented) at patient's floor/unit and/or counseling patient: Coding Level of Care Code 91072 Subseq Hosp Care Lvl 2 Diagnoses Left ureteral calculus N20.1 Flank Pain R10.9 Hydronephrosis with renal and ureteral calculous obstruction N13.2
[2021-07-08] MEDS ORDERED: Influenza Vaccine-High Dose (Fluzone-HD) PF 65+ 0.7 ML SYR IM ONE (08:30)
[2021-07-08] MEDS ORDERED: LOSARTAN POTASSIUM 50 MG TAB PO SCH (09:00)
[2021-07-08] MEDS ORDERED: ATORVASTATIN 10 MG TAB PO SCH (09:00)
[2021-07-08] MEDS ORDERED: TAMSULOSIN HCL 0.4 MG CAP PO SCH (09:00)
[2021-07-08] MEDS ORDERED: UMECLIDINIUM/VILANTEROL 62.5/25MCG 7 PUFFS/INHALER INH SCH (09:00)
[2021-07-08 09:24] LABS: Basophils # (auto) 0.01 K/uL (0-0.2); Basophils % (auto) 0.2 %; Eosinophils # (auto) 0.11 K/uL (0-0.5); Eosinophils % (auto) 1.7 %; Hematocrit (blood only) 34.2 % (37-47); Hemoglobin 11.1 g/dL (12.0-16.0); Lymphocytes # (auto) 1.45 K/uL (1.2-3.4); Lymphocytes % (auto) 21.9 %; Mean Corpuscular Hemoglobin 28.5 pg (25-34); Mean Corpuscular Hgb Conc 32.5 g/dL (32-36); Mean Corpuscular Volume 87.7 fL (80-100); Mean Platelet Volume 11.5 fL (7.4-10.4); Monocytes # (auto) 0.54 K/uL (0.11-0.59); Monocytes % (auto) 8.2 %; Neutrophils # (auto) 4.51 K/uL (1.4-6.5); Platelet Count 122 K/uL (130-400); RDW Coefficient of Variation 13.1 % (11.5-14.5); RDW Standard Deviation 41.9 fL (36.4-46.3); White Blood Count 6.62 K/uL (4.8-10.8)
[2021-07-08] MEDS: cefTRIAXone SODIUM 2,000 MG in DEXTROSE 5% 50 ML IV SCH (10:00)
[2021-07-08 10:22] LABS: Calcium 8.4 mg/dl (8.5-10.1); Est GFR (African American) 90.4 ml/min; Potassium 3.8 mmol/L (3.5-5.1)
--- NOTE | 2021-07-08 10:24 | XRay Report ---
XR chest 2V PA/lateral HISTORY: 76 years-old Female pre op left ureteral calculus. COMPARISON: CT abdomen and pelvis 07/07/2021 TECHNIQUE: PA and lateral views of the chest FINDINGS: The cardiac silhouette is upper limits of normal in size. Prominent epicardial fat pad with eventrati on of the right hemidiaphragm. Minimal linear subsegmental bibasilar atelectasis. No pneumothorax, pl eural effusion, airspace consolidation or overt pulmonary edema. Degenerative changes of the shoulder s and spine. IMPRESSION: No acute process. ACT 112: Negative or not required by law. The above report was generated using voice recognition software. It may contain grammatical, syntax o r spelling errors. Electronically signed by: Jero Goodman M.D. 07/08/2021 10:23 AM
--- NOTE | 2021-07-08 12:19 | Hospitalist Progress Note ---
Date of Service July 08, 2021 Assessment & Plan (1) Hydronephrosis with renal and ureteral calculous obstruction: Plan: 6 mm obstructing stone within the distal left ureter resulting in mild left hydroureteronephrosis. NPO IVF Urology on board - plan for OR this afternoon Urine culture pending Continue IV Ceftriaxone, Day #2 Strain all urine Flomax EKG reviewed at bedside, NSR with sinus arrhythmia, CXR reviewed without acute cardiopulmonary intervention medically cleared, able to complete 4METS w/o cardiac sx as outpt Anemia h/h 11.1 and 34.2 today likely dilutional monitor cbc (2) Asthma: Plan: no acute exac Continue home meds (3) GERD (gastroesophageal reflux disease): Plan: Continue PPI therapy (4) Chronic ITP (idiopathic thrombocytopenia): Plan: Not an active issue, not currently following with hematology - platelets 122 today (5) Hypertension: Plan: BP stable continue metoprolol and losartan Plan: Dispo: to OR later today, to remain hospitalized, likely d/c in next 1-2 days DVT Prophylaxis: SCDs Code Status: Full Code PCP: Leida Pt was seen and examined in collaboration with Dr. Mendez, please see addendum Admission and Anticipated Discharge Date Admission Date: July 07, 2021 Supervising Physician Co-Signing Physician Notes Patient seen and examined by me. Patient seen after procedure and PACU. Patient currently symptom-free. Denies any symptoms. Exam is unremarkable. Discussed with urologist who recommend discharge home. Urologist already sent medications to patient's pharmacy. Discussed with patient and daughter Philomena over the phone. Patient to follow-up with urology outpatient next week for stent removal. Patient discharged today Subjective Patient was seen and examined in room 385-2. Follow up L ureter distal obstructive stone with mild hydronephrosis. She continues to have mild LLQ pain with radiation to L flank. She remains NPO. She did not pass stone overnight. Plan for OR this afternoon. Denies f/c/s, chest pain, sob, n/v/d. This is her first kidney stone. Review of Systems Review of Systems: All systems reviewed & are unremarkable except as noted in HPI & below Physical Exam 2 Physical Exam: Gen: WD/WN, NAD, A&O x3 HEENT: Normocephalic, atraumatic, conjunctivae moist, sclerae anicteric, mucous membranes moist. Lung: Clear to Auscultation bilaterally, no wheezes/rales/rhonchi Heart: Regular rate, regular rhythm, no murmurs, rubs, or gallops Abdomen: obese abd, Soft, NT, ND +BS x 4 Extremities: No edema Skin: Warm, no rash, negative turgor. Results & Data Results & Data ([facility]) Vital Signs (Past 12 Hours) Vital Signs Temp Pulse Resp BP Pulse Ox 07/08/21 07:35 36.9 C 64 14 103/63 95 Laboratory Results Short CBC 07/08/21 Range/Units 08:50 WBC 6.62 (4.8-10.8) K/uL Hgb 11.1 L D (12.0-16.0) g/dL Hct 34.2 L (37-47) % Plt Count 122 L (130-400) K/uL BMP 07/08/21 08:50 Sodium 144 Potassium 3.8 Chloride 115 H Carbon Dioxide 21 BUN 14 Creatinine 0.75 Glucose 94 Calcium 8.4 L Medications Administered Current Inpatient Medications Albuterol (Albuterol Hfa 8 Gm Inhaler) 2 puffs INH Q4H PRN PRN Reason: Shortness Of Breath Stop: 08/06/21 19:58 Atorvastatin Calcium (Atorvastatin 10 Mg Tab) 10 mg PO QAM MARCY Stop: 08/07/21 08:59 Last Admin: 07/08/21 09:56 Dose: 10 mg Documented by: Escitalopram Oxalate (Escitalopram Oxalate 10 Mg Tab) 10 mg PO HS MARCY Stop: 08/06/21 20:59 Last Admin: 07/07/21 22:07 Dose: 10 mg Documented by: Sodium Chloride (Nss 1000ml) 1,000 mls @ 50 mls/hr IV .Q20H MARCY Stop: 08/06/21 16:14 Last Infusion: 07/08/21 05:46 Dose: 50 mls/hr Documented by: Ceftriaxone Sodium 2,000 mg/ (Dextrose) 70 mls @ 100 mls/hr IV DAILY MARCY; Protocol Stop: 07/17/21 18:12 Last Infusion: 07/08/21 10:42 Dose: Infused Documented by: Losartan Potassium (Losartan Potassium 50 Mg Tab) 100 mg PO QAM MARCY Stop: 08/07/21 08:59 Last Admin: 07/08/21 09:57 Dose: 100 mg Documented by: Metoprolol Succinate (Metoprolol Succ 25mg Ext Rel Tab) 25 mg PO HS MARCY Stop: 08/06/21 20:59 Last Admin: 07/07/21 22:08 Dose: 25 mg Documented by: Montelukast Sodium (Montelukast Sodium 10 Mg Tablet) 10 mg PO HS MARCY Stop: 08/06/21 20:59 Last Admin: 07/07/21 22:08 Dose: 10 mg Documented by: Morphine Sulfate (Morphine Sulfate 2 Mg/Ml Carp) 2 mg IV Q6H PRN PRN Reason: Pain Stop: 07/21/21 19:58 Ondansetron HCl (Ondansetron Inj 2 Mg/Ml 2 Ml Vial) 4 mg IV Q6H PRN PRN Reason: Nausea Stop: 08/06/21 19:58 Pantoprazole Sodium (Pantoprazole 40 Mg Tab) 40 mg PO DAILYBB MARCY Stop: 08/07/21 06:29 Last Admin: 07/08/21 05:07 Dose: 40 mg Documented by: Tamsulosin HCl (Tamsulosin Hcl 0.4 Mg Cap) 0.4 mg PO QAM MARCY Stop: 08/07/21 08:59 Last Admin: 07/08/21 09:57 Dose: 0.4 mg Documented by: Tramadol HCl (Tramadol Hcl 50 Mg Tablet) 50 mg PO Q6H PRN PRN Reason: Pain Stop: 08/06/21 19:58 Last Admin: 07/08/21 05:47 Dose: 50 mg Documented by: Umeclidinium/Vilanterol (Umeclidinium/Vilanterol 62.5/25mcg 7 Puffs/Inhaler) 1 puffs INH DAILY MARCY Stop: 08/07/21 08:59
--- NOTE | 2021-07-08 15:05 | Anesthesiology Consultation ---
Date of Service July 08, 2021 Assessment & Plan Chart Review Chart Review: Acceptable Risk for Surgery and Patient NOT seen in Pre Admission Testing Consults Requested none ASA ASA3 Proposed Anesthesia Anesthesia Type: General History Surgery Operation Date: 07/08/21 12:30 Proposed Procedures p Cystoscopy, Left Retrograde Pyelogram, Left Stent Insertion, Possible Uret eroscopy, Laser Lithotripsy Stone Stephenie Pope MD Height/Weight Height: 4 ft 11 in Weight: 81.7 kg Allergies Allergy/AdvReac Type Severity Reaction Status Date / Time No Known Allergies Allergy Unknown Verified 03/10/15 08:55 Medications Home Medications Medication Instructions Recorded Confirmed Last Taken albuterol sulfate 90 mcg/actuation 2 puff INHALATION Q4H PRN 07/07/21 07/07/21 07/07/21 aerosol inhaler atorvastatin 10 mg tablet 10 mg PO QAM 07/07/21 07/07/21 07/06/21 cholecalciferol (vitamin D3) 25 25 mcg PO QAM 07/07/21 07/07/21 07/06/21 mcg (1,000 unit) capsule (Vitamin D3) escitalopram oxalate 10 mg tablet 10 mg PO HS 07/07/21 07/07/21 07/06/21 fluticasone propionate 110 2 puff INHALATION BID PRN 07/07/21 07/07/21 07/07/21 mcg/actuation HFA aerosol inhaler (Flovent HFA) fluticasone propionate 50 1 spray INTRANASAL DAILY PRN 07/07/21 07/07/21 Unknown mcg/actuation nasal spray,suspension losartan 100 mg tablet 100 mg PO QAM 07/07/21 07/07/21 07/06/21 metoprolol succinate 25 mg 25 mg PO HS 07/07/21 07/07/21 07/06/21 tablet,extended release 24 hr montelukast 10 mg tablet 10 mg PO HS 07/07/21 07/07/21 07/06/21 multivitamin 1 tab PO QAM 07/07/21 07/07/21 07/06/21 pantoprazole 20 mg tablet,delayed 20 mg PO DAILYBB 07/07/21 07/07/21 07/06/21 release umeclidinium 62.5 mcg-vilanterol 1 inh INHALATION DAILY 07/07/21 07/07/21 07/07/21 25 mcg/actuation powdr for inhalation (Anoro Ellipta) Active Medications Generic Name Dose Route Start Last Admin Trade Name Freq PRN Reason Stop Dose Admin Atorvastatin Calcium 10 mg 07/08/21 09:00 07/08/21 09:56 Atorvastatin 10 Mg Tab PO 08/07/21 08:59 10 mg QAM MARCY Administration Escitalopram Oxalate 10 mg 07/07/21 21:00 07/07/21 22:07 Escitalopram Oxalate 10 Mg Tab PO 08/06/21 20:59 10 mg HS MARCY Administration Sodium Chloride 1,000 mls @ 50 mls/hr 07/07/21 16:15 07/08/21 05:46 Nss 1000ml IV 08/06/21 16:14 50 mls/hr .Q20H MARCY Infusion Ceftriaxone Sodium 2,000 mg/ 70 mls @ 100 mls/hr 07/07/21 18:13 07/08/21 10:42 Dextrose IV 07/17/21 18:12 Infused DAILY MARCY Infusion Protocol Losartan Potassium 100 mg 07/08/21 09:00 07/08/21 09:57 Losartan Potassium 50 Mg Tab PO 08/07/21 08:59 100 mg QAM MARCY Administration Metoprolol Succinate 25 mg 07/07/21 21:00 07/07/21 22:08 Metoprolol Succ 25mg Ext Rel Tab PO 08/06/21 20:59 25 mg HS MARCY Administration Montelukast Sodium 10 mg 07/07/21 21:00 07/07/21 22:08 Montelukast Sodium 10 Mg Tablet PO 08/06/21 20:59 10 mg HS MARCY Administration Pantoprazole Sodium 40 mg 07/08/21 06:30 07/08/21 05:07 Pantoprazole 40 Mg Tab PO 08/07/21 06:29 40 mg DAILYBB MARCY Administration Tamsulosin HCl 0.4 mg 07/08/21 09:00 07/08/21 09:57 Tamsulosin Hcl 0.4 Mg Cap PO 08/07/21 08:59 0.4 mg QAM MARCY Administration Tramadol HCl 50 mg 07/07/21 19:59 07/08/21 05:47 Tramadol Hcl 50 Mg Tablet PO 08/06/21 19:58 50 mg Q6H PRN Administration Pain Past Medical History Medical History Allergic rhinitis Asthma Chronic ITP (idiopathic thrombocytopenia) GERD (gastroesophageal reflux disease) History of duodenal ulcer Hypertension Exercise / Class Metabolic Activity III < 4 Walking/Shop/Light housework Past Family History Family History Mother Hypertension Father Cancer Daughter Thyroid disease Past Surgical History Surgical History History of bilateral cataract extraction History of hysterectomy Past Anesthesia History No Hx of Anesthesia Complications and No Family Hx of Anesthesia Complications History of PONV No Hx of PONV and No Hx of Motion Sickness Social History Smoking Status: Never smoker Hx Alcohol Use: Yes alcohol intake frequency: holidays/special occasions only Hx Substance Use: No Physical Exam Vital Signs Last Vital Signs Temp 36.9 C 07/08/21 07:35 Pulse 64 07/08/21 07:35 Resp 14 07/08/21 07:35 BP 103/63 07/08/21 07:35 Pulse Ox 95 07/08/21 07:35 Testing Laboratory Results 07/08/21 08:50 07/08/21 08:50 Urine Color Yellow 07/07/21 11:45 Urine Appearance Clear (Clear) 07/07/21 11:45 Urine pH 5.5 (4.5-7.5) 07/07/21 11:45 Ur Specific Freeman 1.025 (1.000-1.030) 07/07/21 11:45 Urine Protein Negative (Negative) 07/07/21 11:45 Urine Glucose (UA) Negative (Negative) 07/07/21 11:45 Urine Ketones Negative (Negative) 07/07/21 11:45 Urine Nitrite Negative (Negative) 07/07/21 11:45 Ur Leukocyte Esterase Trace (Negative) H 07/07/21 11:45 Urine RBC 10-30 /hpf (0-4) H 07/07/21 11:45 Urine WBC 0-5 /hpf (0-5) 07/07/21 11:45 Ur Epithelial Cells 10-20 /lpf (0-5) H 07/07/21 11:45 07/07/21 11:45 Urine Culture - Preliminary Urine,Clean Catch No growth - Less than 1,000 colonies/mL, Final report to follow. Electrocardiogram Date: 07/08/21 Findings: + NSR @ (at73 w/ sinus arrhythmia) Chest X-Ray Date: 07/08/21 Findings: + NAD
[2021-07-08] MEDS ORDERED: LIDOCAINE 2% 2 ML VIAL/AMP(20MG/ML) INFIL ONE (15:24)
[2021-07-08] MEDS ORDERED: MIDAZOLAM HCL 1 MG/ML 2ML VIAL ONE (15:24)
[2021-07-08] MEDS ORDERED: fentaNYL citrate 100 MCG/2 ML VIAL ONE (15:24)
[2021-07-08] MEDS ORDERED: PROPOFOL IV EMULSION 10 MG/ML 20 ML VIAL IV ONE (15:24)
[2021-07-08] MEDS ORDERED: ONDANSETRON INJ 2 MG/ML 2 ML VIAL ONE (15:35)
[2021-07-08] MEDS ORDERED: LABETALOL HCL IV 5 MG/ML 20ML IV PRN (15:54)
[2021-07-08] MEDS ORDERED: NALOXONE HCL 0.4 MG/1 ML VIAL/CARP IV PRN (15:54)
[2021-07-08] MEDS ORDERED: ATROPINE SULFATE 0.1 MG/ML 10ML SYR IV PRN (15:54)
[2021-07-08] MEDS ORDERED: fentaNYL citrate 100 MCG/2 ML VIAL IV PRN (15:54)
[2021-07-08] MEDS ORDERED: ONDANSETRON INJ 2 MG/ML 2 ML VIAL IV PRN (15:54)
[2021-07-08] MEDS ORDERED: FLUMAZENIL 0.1 MG/1 ML 10 ML VIAL IV PRN (15:54)
[2021-07-08] MEDS ORDERED: ePHEDrine sulfate 50 MG/ML AMP IV PRN (15:54)
[2021-07-08] MEDS ORDERED: PROMETHAZINE HCL 12.5 MG in SODIUM CHLORIDE 0.9% 50 ML IV PRN (15:54)
[2021-07-08] MEDS ORDERED: DEXAMETHASONE SOD INJ 4 MG/ML VIAL ONE (16:16)
[2021-07-08] MEDS ORDERED: DIATRIZOATE MEGLUMINE 30% 100ML VIAL INSTIL ONE (16:45)
--- NOTE | 2021-07-08 16:47 | Post Operative Brief Note ---
PG Immediate Post Op with CF Date of Surgery July 08, 2021 Pre & Post Diagnosis Operation Date: 07/08/21 12:30 Pre-Op Diagnosis: Hydronephrosis with renal and ureteral calculous obstruction Post-Op Diagnosis: Hydronephrosis with renal and ureteral calculous obstruction I identified the patient and participated in the time-out.: Yes Procedure Operation Date: 07/08/21 12:30 Actual Procedures p Cystoscopy, Left Retrograde Pyelogram, Left Stent Insertion, Possible Ureteroscopy, Laser Lithotripsy Stone Treamtent(Left) - Jean Pope MD Surgeon Jean Pope MD Public Administration Professor None Estimated Blood Loss 0 Findings Consistent with Post-Op Diagnosis Stone in distal ureter. Lasered and basketed out. No extrav. Stent in good position Specimens Specimen Description: Left ureteral calculus Drains Other (6x24 L stent ) Complications None Disposition Accompanied Patient To Recovery: No Disposition: Recovery Room Overlapping Procedure I was present for: the critical portions of procedure.
--- NOTE | 2021-07-08 17:01 | Fluoroscopy Report ---
FL retrograde includes kub HISTORY: 76 years-old Female LT STONE/STENT left ureteral stone COMPARISON: CT abdomen and pelvis 07/07/2021 TECHNIQUE: 5 spot fluoroscopic images of the abdomen and pelvis were obtained utilizing 16.8 seconds fluoroscopy time FINDINGS: A left-sided ureteroscope is present with guidewire within the left ureter. Retrograde injection of c ontrast into the left ureter with persistent mild hydroureteronephrosis. Subsequent images demonstrat e placement of a left ureteral stent, proximal portion in satisfactory positioning. The distal portio n of the stent is not imaged. IMPRESSION: Fluoroscopic assistance as above. ACT 112: Negative or not required by law. The above report was generated using voice recognition software. It may contain grammatical, syntax o r spelling errors. Electronically signed by: Jero Goodman M.D. 07/08/2021 5:00 PM
--- NOTE | 2021-07-08 17:34 | Anesthesiology Progress Note ---
Date of Service July 08, 2021 Anesthesia Post Procedure Vital Signs Vital Signs: Temp Pulse Pulse Resp BP Pulse Ox 07/08/21 17:25 36.6 C 66 15 95/57 L 92 07/08/21 17:15 67 17 100/57 L 92 07/08/21 17:05 81 18 113/50 L 95 07/08/21 16:55 36.7 C 71 14 112/63 94 07/08/21 15:09 36.4 C L 70 20 119/63 96 07/08/21 07:35 36.9 C 64 14 103/63 95 07/07/21 23:23 37.1 C 74 18 136/79 97 07/07/21 20:00 37 C 78 18 139/79 96 07/07/21 19:00 73 18 153/71 H 94 Pain Intensity Left Lower Abdomen: Pain Intensity: 3 Transfer of Care Handoff Completed per policy Notes Mental Status: alert / awake / arousable Patient Amnestic to Procedure: Yes Nausea / Vomiting: adequately controlled Pain: adequately controlled Airway Patency, RR, SpO2: stable & adequate BP & HR: stable & adequate Hydration State: stable & adequate Anesthetic Complications: no major complications apparent
--- NOTE | 2021-07-08 18:17 | Discharge Summary ---
Date of Service July 08, 2021 Admission HPI Per Admitting Provider This is a 76 y/o female with a PMH of HTN, GERD, chronic ITP, asthma and allergic rhinitis who presented to the ED today with LLQ/left flank pain that started this morning. Yesterday, she states that she was in her usual state of health and felt great. Today, she woke up feeling fine but around 7:30 am had the abrupt onset of sharp LLQ pain that radiated to her left flank. She developed associated nausea and dry heaves with at least two episodes of green emesis. She has hot and cold flashes but she denies associated fever, MALDONADO, CP, palpitations, or dizziness. She did have some transient SOB for which she used her prn asthma inhalers this morning but she thinks that this was more related to anxiety about the pain than to her asthma. She has no known prior hx of nephrolithiais. She denies dysuria, hematuria, but does note that her urine has been darker than usual for the past few days. She has a history of chronic ITP and was due for labs next month. She notes recent improvement in her platelet counts and does not routinely follow with hematology although she did see Dr. Parsons for this previously. She takes occasional ibuprofen or Tylenol but no aspirin or blood thinners. Admission Exam Per Admitting Provider Physical Exam Constitutional: well developed and well nourished; no acute distress Eyes: + anicteric sclerae Neck: trachea midline Respiratory: no respiratory distress and no labored breathing Auscultation: lungs clear to auscultation bilaterally; no rales, no rhonchi and no wheezes Cardiovascular: Rate/Rhythm: regular rate and regular rhythm Vessels: dorsalis pedis pulses present and radial pulses present Extremities: no calf tenderness and no edema Gastrointestinal (Abdomen): Inspection/Auscultation: normal bowel sounds; abdomen not distended Percussion/Palpation: + abdomen tender (mild LLQ and left flank) and abdomen soft Musculoskeletal: Head/Neck/Chest: normocephalic, head atraumatic and neck supple Skin: normal turgor; no jaundice Neurologic: moves all extremities; no focal motor deficits Psychiatric: A+Ox3, euthymic affect Principal Diagnosis Left ureteric stone with left hydroureteronephrosis Discharge Exam Gen: WD/WN, NAD, A&O x3 HEENT: Normocephalic, atraumatic, conjunctivae moist, sclerae anicteric, mucous membranes moist. Lung: Clear to Auscultation bilaterally, no wheezes/rales/rhonchi Heart: Regular rate, regular rhythm, no murmurs, rubs, or gallops Abdomen: obese abd, Soft, NT, ND +BS x 4 Extremities: No edema Skin: Warm, no rash, negative turgor. Discharge Data Allergies Allergy/AdvReac Type Severity Reaction Status Date / Time No Known Allergies Allergy Unknown Verified 03/10/15 08:55 Consultations 07/07/21 14:25 ED Decision to Admit Stat 07/07/21 14:39 ED Decision to Admit Stat 07/07/21 15:23 Consult Urology Routine Procedures Performed Operation Date: 07/08/21 12:30 Actual Procedures p Left Retrograde Pyelogram, Ureteroscopy, Laser Lithotripsy Stone Treatment(Left) - Jean Pope MD s Left Stent Insertion,(Left) - Jean Pope MD s Cystoscopy - Jean Pope MD Ordered Studies Abdomen/Pelvis CT 07/07/21 11:[address] WITHOUT CONTRAST CT DOSE: 924.99 mGycm HISTORY: left flank pain TECHNIQUE: Multiaxial CT images of the abdomen and pelvis were performed without contrast. A dose lowering technique was utilized adhering to the principles of ALARA. COMPARISON STUDY: None. FINDINGS: There is a 3 mm subpleural nodular density within the right middle lobe on image 20. This may represent an area of scarring. Punctate calcified granuloma within the left lower lobe. No fractures within the visualized osseous structures. There is a small hiatus hernia. There are small fat-containing bilateral inguinal hernias. There is a 6 mm obstructing stone within the distal left ureter on image 351. This results in mild left hydroureteronephrosis. There is mild left perinephric edema. There is a punctate stone within the lower pole of the left kidney. No right renal stones. The bladder is unremarkable. Prior hysterectomy. No pelvic free fluid. The unenhanced liver, gallbladder, spleen, adrenal glands, and pancreas are unremarkable. No retroperitoneal lymphadenopathy. Mild calcified plaque within the normal caliber abdominal aorta. Suboptimal evaluation for bowel pathology due to the lack of intravenous and oral contrast. However, there is no definite bowel wall thickening or obstruction. Colonic diverticulosis. No evidence for acute diverticulitis. Normal appendix. IMPRESSION: 1. A 6 mm obstructing stone within the distal left ureter resulting in mild left hydroureteronephrosis. 2. There is an additional punctate nonobstructing stone within the lower pole the left kidney. 3. Colonic diverticulosis. No evidence for acute diverticulitis. 4. Normal appendix. 5. Hysterectomy. ACT 112: Negative or not required by law. Electronically signed by: See Patrick M.D. 07/07/2021 1:10 PM Chest X-Ray 07/08/21 08:41 XR chest 2V PA/lateral HISTORY: 76 years-old Female pre op left ureteral calculus. COMPARISON: CT abdomen and pelvis 07/07/2021 TECHNIQUE: PA and lateral views of the chest FINDINGS: The cardiac silhouette is upper limits of normal in size. Prominent epicardial fat pad with eventration of the right hemidiaphragm. Minimal linear subsegmental bibasilar atelectasis. No pneumothorax, pleural effusion, airspace consolidation or overt pulmonary edema. Degenerative changes of the shoulders and spine. IMPRESSION: No acute process. ACT 112: Negative or not required by law. The above report was generated using voice recognition software. It may contain grammatical, syntax or spelling errors. Electronically signed by: Jero Goodman M.D. 07/08/2021 10:23 AM Retrograde Pyelogram 07/08/21 14:30 FL retrograde includes kub HISTORY: 76 years-old Female LT STONE/STENT left ureteral stone COMPARISON: CT abdomen and pelvis 07/07/2021 TECHNIQUE: 5 spot fluoroscopic images of the abdomen and pelvis were obtained utilizing 16.8 seconds fluoroscopy time FINDINGS: A left-sided ureteroscope is present with guidewire within the left ureter. Retrograde injection of contrast into the left ureter with persistent mild hydroureteronephrosis. Subsequent images demonstrate placement of a left ureteral stent, proximal portion in satisfactory positioning. The distal portion of the stent is not imaged. IMPRESSION: Fluoroscopic assistance as above. ACT 112: Negative or not required by law. The above report was generated using voice recognition software. It may contain grammatical, syntax or spelling errors. Electronically signed by: Jero Goodman M.D. 07/08/2021 5:00 PM Hospital Course (1) Hydronephrosis with renal and ureteral calculous obstruction: This is a 76 yr old female who presented to ED with L flank and LLQ pain. No prior hx of nephrolithiasis. CT a/p revealed 6 mm obstructing stone within the distal left ureter resulting in mild left hydroureteronephrosis. She was started on empiric antibiotics, urine culture obtained, received IVF and flomax. She did not pass stone spontaneously and therefore underwent left retrograde pyelogram ,ureteroscopy, laser lithotripsy stone treatment with stent insertion by Dr. Pope. She tolerated the procedure well and was cleared for discharge by urology. She was prescribed Bactrim, flomax and oxybutnin. She will follow up with urology in one week for stent removal. Her urine culture was negative. At time of discharge she was hemodynamically stable and pain free. (2) Asthma: (3) GERD (gastroesophageal reflux disease): (4) Chronic ITP (idiopathic thrombocytopenia): (5) Hypertension: Total Time Total Time Spent Total Time Spent (In Minutes): 35 minutes Total Time Includes: Examination of the Patient, Discharge Planning, Medication Reconciliation, Communication With Other Providers and Other Discharge Plan Discharge Items Patient Disposition: Home - Self-Care Reason For Visit: Left flank pain Discharge Diagnosis: Left ureteric stone with left hydroureteronephrosis Activity: Resume your previous activity Non-emergency contact: Primary Care Provider and Urologist Call non-emergency contact if: you have any medication questions Follow-up/Referrals: Trey Casarez [Primary Care Provider] - Diet: Regular and Heart Healthy Addtl Attending Provider Instructions: Mrs. Babcock You came to the hospital complaining of left flank pain. You were evaluated and found to have a stone in your left ureter causing obstruction. You were taken today OR by the urologist and had cystoscopy, left stent insertion and laser lithotripsy stone treatment. Your symptoms resolved. You are being discharged home. Please ensure follow-up with urology outpatient as discussed. Continue to follow-up with your primary doctor. It was a pleasure taking care of you Pending Studies at Discharge: No Stand-Alone Forms: My [employer], Opioid Pain Management, Smoking Cessation Medications and DC Order Prescriptions: New tamsulosin [Flomax] 0.4 mg capsule 0.4 mg PO DAILY Qty: 10 RF: 0 oxybutynin chloride [Ditropan XL] 5 mg tablet extended release 24hr 5 mg PO DAILY Qty: 10 RF: 0 sulfamethoxazole-trimethoprim [Bactrim DS] 800-160 mg tablet 1 tab PO Q12H Qty: 6 RF: 0 docusate sodium [Col-Rite] 100 mg capsule 100 mg PO BID Qty: 10 RF: 0 Continued multivitamin Tablet 1 tab PO QAM RF: 0 atorvastatin 10 mg tablet 10 mg PO QAM RF: 0 pantoprazole 20 mg tablet,delayed release (DR/EC) 20 mg PO DAILYBB RF: 0 montelukast 10 mg tablet 10 mg PO HS RF: 0 metoprolol succinate 25 mg tablet extended release 24 hr 25 mg PO HS RF: 0 albuterol sulfate 90 mcg/actuation HFA aerosol inhaler 2 puff INHALATION Q4H PRN (Reason: Shortness Of Breath) RF: 0 losartan 100 mg tablet 100 mg PO QAM RF: 0 Flovent HFA 110 mcg/actuation HFA aerosol inhaler 2 puff inhalation BID PRN (Reason: Shortness Of Breath) RF: 0 cholecalciferol (vitamin D3) [Vitamin D3] 25 mcg (1,000 unit) Capsule 25 mcg PO QAM RF: 0 escitalopram oxalate 10 mg tablet 10 mg PO HS RF: 0 fluticasone propionate 50 mcg/actuation [place],Suspension 1 spray INTRANASAL DAILY PRN (Reason: Allergy Symptoms) RF: 0 Anoro Ellipta 62.5-25 mcg/actuation Blister With Device 1 inh INHALATION DAILY RF: 0 Discharge Orders: Discharge Order (Routine); Ordered 07/08/21 Ordered By: Maricruz Mendez Admission Data Admit Date/Time: 07/07/21 15:20 Attending Provider: Maricruz Mendez I. Admit Provider: Maribel Davis Primary Care Provider: Trey Casarez Other Providers: Maribel Davis ; Nichelle Earl ; Mike Owusu Other Interventions: Discharge Summary Assessment (RN) Last Done: 07/08/21 18:37 Supervising Physician Co-Signing Physician Notes Agree with history and findings as detailed by Nichelle Earl PA-C
--- NOTE | 2021-07-08 19:08 | Operative Report ---
PG Post Operative Report Pre & Post Diagnosis Operation Date: 07/08/21 12:30 Pre-Op Diagnosis: Hydronephrosis with renal and ureteral calculous obstruction Post-Op Diagnosis: Hydronephrosis with renal and ureteral calculous obstruction I identified the patient and participated in the time-out.: Yes Procedure Operation Date: 07/08/21 12:30 Actual Procedures p Left Retrograde Pyelogram with radiographic interpretation, Left Ureteroscopy, Laser Lithotripsy Stone Treatment(Left) - Jean Pope MD s Left Stent Insertion,(Left) - Jean Pope MD s Cystoscopy - Jean Pope MD Surgeon Jean Pope MD Yarn Packer None Estimated Blood Loss 0 Findings Consistent with Post-Op Diagnosis 1. Normal urethra and bladder. 2. Stone encountered in left distal ureter. Fragmented into smaller pieces and basketed out. 3. Left retrograde pyelogram at the end of case did not show any filling defects or extravasation. 4. Stent in good position Specimens Left ureteral calculus Drains 6 Ethiopian by 24 cm left ureteral stent Anesthesia Type General Complications None Disposition Accompanied Patient To Recovery: No Disposition: Recovery Room Indications 76-year-old female with a 6 mm distal left ureteral calculus. She was afebrile with no leukocytosis, creatinine of 0.75 and a urinalysis that was negative for nitrites, trace leukocyte esterase, 10-30 RBCs, 0-5 WBCs and 1+ bacteria. She had no signs of infection. Risks and benefits were discussed and she consented to left ureteral stent placement with possible ureteroscopy and stone treatment if feasible. Description of Procedure After informed consent was obtained, the patient was transported to the operative suite. General anesthesia was induced. They were placed in dorsal lithotomy position and prepped and draped in sterile fashion. They received preoperative ceftriaxone. An appropriate surgical timeout was performed. A 22 Ethiopian rigid cystoscope was inserted per urethra into the bladder. The urethra and bladder were normal with no stones and no signs of infection. I turned my attention the left ureteral orifice and advanced a sensor wire into the upper pole of the kidney and confirmed this fluoroscopically. This was tagged to the side as a safety wire. I advanced a semirigid ureteroscope into the left distal ureter. I encountered the stone. Using a 272 m fiber laser under settings of 0.8 and 10, I fragmented the stones in the smaller pieces. Using a 0 tip Nitinol basket, these were all basketed out atraumatically. I then surveyed nearly the entire ureter with the semirigid scope and noticed no further stone fragments and no injuries. I remove the semirigid ureteroscope. I advanced a 10 Ethiopian dual-lumen over the sensor wire into the distal left ureter. I shot a left retrograde pyelogram which showed no extravasation or filling defects. I then deployed a 6 Ethiopian by 24 cm left ureteral stent with a good proximal coil in the kidney confirmed fluoroscopically and a good distal coil in the bladder confirmed under direct visualization. The stones were evacuated out of the bladder and the scope was removed This concluded the end of the case. All counts were correct at the end of the case. I was present scrubbed and active participated for the entire the procedure. Plan: 1. Stable for discharge home from a urologic perspective 2. I have sent prescriptions for Flomax, Ditropan, Colace and 3 days of Bactrim to her pharmacy 3. I will send a message to schedule her for cystoscopy with stent removal in clinic next week. I attest to the content of the Intraoperative Record and any orders documented therein. Any exceptions are noted below.
--- NOTE | 2021-07-09 06:39 | Electrocardiogram Report ---
Test Reason : Blood Pressure : / mmHG Vent. Rate : 073 BPM Atrial Rate : 073 BPM P-R Int : 146 ms QRS Dur : 068 ms QT Int : 420 ms P-R-T Axes : 057 053 028 degrees QTc Int : 462 ms Sinus rhythm with marked sinus arrhythmia Premature atrial complexes Otherwise normal ECG When compared with ECG of 14-OCT-2005 16:10, Premature atrial complexes are now Present Confirmed by Gera Campos ([id number]) on 07/09/2021 6:39:10 AM Referred By: REFERRED SELF Confirmed By:Gera Campos
[2021-07-15 11:31] LABS: Component 2 DNR; Source URETERAL STONE
== END 2021-07-08 18:59 | disposition home or self-care (01) ==
LOC: ED 10:47 → 3N 15:20 → SUATTDRO 15:20 → INTOOBSV 15:20 → 3N 19:45
DX: D69.3 Immune thrombocytopenic purpura; J45.909 Unspecified asthma, uncomplicated; K57.30 Diverticulosis of large intestine without perforation or abscess without bleeding; K21.9 Gastro-esophageal reflux disease without esophagitis; J44.9 Chronic obstructive pulmonary disease, unspecified; I10 Essential (primary) hypertension; N13.2 Hydronephrosis with renal and ureteral calculous obstruction; D64.9 Anemia, unspecified; Z79.899 Other long term (current) drug therapy